=== PATIENT | male | born 1995 | race Caucasian/White ===

== ENCOUNTER → 2016-11-14 | Outpatient (REF) | payer OTHER | LOC: M SMT 17:07 | PROVIDERS: ATTEND Urology | DX: R39.89 Other symptoms and signs involving the genitourinary system (principal) | CPT/HCPCS: 81001; 87086; G0463 ==

== ENCOUNTER → 2016-12-05 | Outpatient (CLI) | payer OTHER ==
[~2016-12-05] MED LIST: ISOVUE-370 76% 100ML VIAL (Q9967) As Ordered ONE
--- NOTE | 2016-12-05 14:59 | REP ---
Clinical: Hematuria. Technique: Axial precontrast, contrast enhanced, and delayed images of the abdomen and pelvis using 100 ml Isovue 370 intravenous contrast material with coronal and sagittal re-formations and MIP urogram. Comparison: 07/27/2015. Findings: Evaluation of the urinary check system demonstrates solitary 1 cm bilateral renal cysts. There is no nephrolithiasis, hydroureteronephrosis, perinephric stranding, renal mass lesion or obstructing ureteral calculi. The collecting system and bladder appear normal on delayed imaging. Liver, spleen, pancreas, gallbladder, and bilateral adrenal glands are normal. The enteric system is without obstruction or acute inflammatory process. Scattered sigmoid diverticula noted without acute diverticulitis. Pelvis demonstrates normal bladder and age appropriate prostate/seminal vesicles. No pelvic fluid or ascites. No adenopathy. No free air. Abdominal aorta and vasculature normal. Surrounding musculoskeletal structures are intact. Lung bases are clear. Impression: 1. Bilateral solitary 1 cm renal cysts. No further urinary tract pathology appreciated. 2. Scattered sigmoid diverticula. 3. No further acute intra-abdominal or pelvic pathology appreciated. Signed by Eder Muse MD 12/05/2016 02:51 P
== END ==
LOC: M RAD 14:00
PROVIDERS: ATTEND Urology
DX: R31.0 Gross hematuria (principal); N28.1 Cyst of kidney, acquired; K57.30 Diverticulosis of large intestine without perforation or abscess without bleeding
CPT/HCPCS: 74178; Q9967

== ENCOUNTER → 2017-01-01 | Outpatient (CLI) | payer OTHER ==
--- NOTE | 2017-01-01 18:11 | REP ---
Clinical: Spondylosis . Technique: AP, lateral, flexion/extension, bilateral oblique, and coned-down views. Findings: Alignment and lordosis is maintained. The vertebral bodies including transverse process and spinous processes are intact and normal. There is no evidence for acute fracture / compression injury or subluxation. No evidence for spondylolysis or spondylolisthesis. No significant degenerative change is noted. Impression: Normal lumbosacral spine radiograph series. Signed by Eder Muse MD 01/01/2017 06:04 P
--- NOTE | 2017-01-01 18:14 | REP ---
Clinical: Spondylosis. Technique: AP, lateral, flexion/extension, swimmer's, bilateral oblique and open mouth views. Findings: Alignment and lordosis is relatively maintained. 1.4 mm of retrolisthesis at the C4-5 level on neutral and extension views is suggested. No acute fracture or subluxation. No significant degenerative changes are appreciated. Oblique views demonstrate patent neural foramen. Open mouth view demonstrates normal C1-C2 articulation and odontoid process. Impression: Chronic, stable 1.4 mm of retrolisthesis at the C4-5 level cannot be excluded. Examination is otherwise normal. Signed by Eder Muse MD 01/01/2017 06:06 P
== END ==
LOC: M RAD 15:32
PROVIDERS: ATTEND Neurological Surgery
DX: M47.892 Other spondylosis, cervical region (principal); M47.896 Other spondylosis, lumbar region

== ENCOUNTER → 2017-11-19 | Outpatient (CLI) | payer OTHER | LOC: M RAD 10:54 | DX: M47.892 Other spondylosis, cervical region (principal); M47.896 Other spondylosis, lumbar region ==

== ENCOUNTER 2018-08-16 13:42 | Emergency (ER) | payer OTHER ==
[2018-08-16] MEDS: KETOROLAC 30 MG/ML VIAL (J1885) IV (14:45)
[2018-08-16] MEDS: diphenhydrAMINE INJ 50MG/ML VIAL (J1200) IV (14:45)
[2018-08-16] MEDS: METOCLOPRAMIDE INJ 10MG/2ML VIAL (J2765) IV (14:45)
== END 2018-08-16 16:38 | disposition home or self-care (01) ==
LOC: M ED 13:42
DX: R51 Headache (principal); Z79.899 Other long term (current) drug therapy; Q07.00 Arnold-Chiari syndrome without spina bifida or hydrocephalus
CPT/HCPCS: J1200

== ENCOUNTER 2018-08-19 11:07 | Emergency (ER) | payer OTHER ==
[2018-08-19] MEDS: METOCLOPRAMIDE INJ 10MG/2ML VIAL (J2765) IV (11:31)
[2018-08-19] MEDS: KETOROLAC 30 MG/ML VIAL (J1885) IV (11:31)
[2018-08-19] MEDS: NS 1,000 ML IV (11:31)
[2018-08-19] MEDS: ACETAMINOPHEN 325 MG TAB PO (12:47)
== END 2018-08-19 12:49 | disposition home or self-care (01) ==
LOC: M ED 11:07
DX: G43.919 Migraine, unspecified, intractable, without status migrainosus (principal); Z79.899 Other long term (current) drug therapy
CPT/HCPCS: J1885

== ENCOUNTER 2018-09-08 11:51 | Emergency (ER) | payer OTHER ==
[2018-09-08] MEDS: METOCLOPRAMIDE INJ 10MG/2ML VIAL (J2765) IV (12:49)
[2018-09-08] MEDS: NS 1,000 ML IV (12:50)
[2018-09-08] MEDS: diphenhydrAMINE INJ 50MG/ML VIAL (J1200) IV (12:50)
[2018-09-08] MEDS: KETOROLAC 30 MG/ML VIAL (J1885) IV (12:50)
[2018-09-08 12:58] LABS: BASO # 0.1 10^3/uL (0.0-0.2); BASO % 0.4 % (0.0-1.0); EOS # 0.1 10^3/uL (0.0-0.50); EOS % 0.5 % (0.0-3.0); HEMATOCRIT 44.8 % (42.0-52.0); HEMOGLOBIN 16.3 g/dl (13.5-17.5); IMMATURE GRANULOCYTE % 0.2 % (0-3.0); MEAN CORPUSCULAR HEMOGLOBIN 30.1 pg (27.0-33.0); MEAN CORPUSCULAR HGB CONC 36.4 g/dl (32.0-36.5); MEAN CORPUSCULAR VOLUME 82.7 fl (80.0-96.0); MONO # 0.9 10^3/uL (0.0-0.8); MONO % 7.8 % (0.0-5.0); NEUTROPHILS % 66.1 % (36.0-66.0); PLATELET COUNT, AUTOMATED 232 10^3/uL (150-450); RED BLOOD COUNT 5.42 10^6/uL (4.30-6.10); RED CELL DISTRIBUTION WIDTH 12.4 % (11.5-14.5); WHITE BLOOD COUNT 12.1 10^3/uL (4.0-10.0)
[2018-09-08 13:14] LABS: ANION GAP 8 MEQ/L (8-16); BLOOD UREA NITROGEN 11 MG/DL (7-18); CALCIUM LEVEL 8.8 MG/DL (8.5-10.1); CARBON DIOXIDE LEVEL 28 MEQ/L (21-32); CHLORIDE LEVEL 102 MEQ/L (98-107); CREATININE FOR GFR 0.98 MG/DL (0.70-1.30); GLOMERULAR FILTRATION RATE > 60.0 (>60); GLUCOSE, FASTING 85 MG/DL (70-100); SODIUM LEVEL 138 MEQ/L (136-145)
[2018-09-08 14:06] LABS: PROTHROMBIN TIME 14.3 SECONDS (12.1-14.4)
[2018-09-08] MEDS: POTASSIUM CHLORIDE 10 MEQ SR TABLET PO (14:17)
== END 2018-09-08 14:39 | disposition home or self-care (01) ==
LOC: M ED 11:51
DX: G43.909 Migraine, unspecified, not intractable, without status migrainosus (principal); R04.0 Epistaxis
CPT/HCPCS: J1200

== ENCOUNTER 2018-09-10 10:30 | Emergency (ER) | payer OTHER ==
[2018-09-10] MEDS ORDERED: METOCLOPRAMIDE 10 MG TAB PO (11:15)
[2018-09-10] MEDS: NS 1,000 ML IV (11:27)
[2018-09-10] MEDS: KETOROLAC 30 MG/ML VIAL (J1885) IV (11:29)
[2018-09-10] MEDS: diphenhydrAMINE INJ 50MG/ML VIAL (J1200) IV (11:33)
[2018-09-10] MEDS: METOCLOPRAMIDE INJ 10MG/2ML VIAL (J2765) IV (11:36)
[2018-09-10 11:52] LABS: ANION GAP 7 MEQ/L (8-16); BLOOD UREA NITROGEN 11 MG/DL (7-18); CALCIUM LEVEL 8.5 MG/DL (8.5-10.1); CARBON DIOXIDE LEVEL 26 MEQ/L (21-32); CHLORIDE LEVEL 109 MEQ/L (98-107); CREATININE FOR GFR 1.01 MG/DL (0.70-1.30); GLOMERULAR FILTRATION RATE > 60.0 (>60); GLUCOSE, FASTING 99 MG/DL (70-100); POTASSIUM SERUM 3.6 MEQ/L (3.5-5.1); SODIUM LEVEL 142 MEQ/L (136-145)
== END 2018-09-10 12:58 | disposition home or self-care (01) ==
LOC: M ED 10:30
DX: G43.909 Migraine, unspecified, not intractable, without status migrainosus (principal); F32.9 Major depressive disorder, single episode, unspecified; Z79.899 Other long term (current) drug therapy
CPT/HCPCS: J1200

== ENCOUNTER 2018-10-10 12:51 | Emergency (ER) | payer OTHER | END 2018-10-10 14:26 | disposition home or self-care (01) | LOC: M ED 12:51 | DX: S00.83XA Contusion of other part of head, initial encounter (principal); V43.52XA Car driver injured in collision with other type car in traffic accident, initial encounter; Y92.9 Unspecified place or not applicable; Y93.9 Activity, unspecified; Y99.9 Unspecified external cause status; R51 Headache; K21.9 Gastro-esophageal reflux disease without esophagitis; F32.9 Major depressive disorder, single episode, unspecified; Z79.899 Other long term (current) drug therapy | CPT/HCPCS: 70450 ==

== ENCOUNTER 2018-11-05 10:50 | Emergency (ER) | payer OTHER ==
[~2018-11-05] VITALS: Ht 182.9 cm; Wt 88.2 kg
[~2018-11-05 10:50] MED LIST changes: +BACL10TA2; +DICL75TA; +DIVA250T67; +DULO1CAP2; +IBUP-1022 PO; +IMIT100T PO; -ISOVUE-370 76% 100ML VIAL (Q9967) As Ordered ONE; +NORT50CA; +PANT40TA3; +PANT40TA3 PO; +REGL10TA6 PO; +TOPI25TA10
[2018-11-05] MEDS ORDERED: GABA-843 PO (10:54)
[2018-11-05] MEDS ORDERED: NS 1,000 ML IV ONE (11:15)
[2018-11-05] MEDS ORDERED: diphenhydrAMINE INJ 50MG/ML VIAL (J1200) IV ONE (11:15)
[2018-11-05] MEDS ORDERED: METOCLOPRAMIDE INJ 10MG/2ML VIAL (J2765) IV ONE (11:15)
[2018-11-05] MEDS ORDERED: KETOROLAC 30 MG/ML VIAL (J1885) IV ONE (11:15)
[2018-11-05] MEDS ORDERED: ACETAMINOPHEN 325 MG TAB PO ONE (12:45)
[2018-11-05] MEDS ORDERED: PRED20TA PO (13:35)
[2018-11-05 13:52] VITALS: BP 115/69
== END 2018-11-05 13:53 | disposition home or self-care (01) ==
LOC: M ED 10:50
DX: G43.909 Migraine, unspecified, not intractable, without status migrainosus (principal)
CPT/HCPCS: 96361; 96374; 96375; 99284; G0480; J1200; J1885; J2765

== ENCOUNTER 2018-11-12 12:04 | Emergency (ER) | payer OTHER ==
[~2018-11-12] VITALS: Ht 182.9 cm; Wt 86.4 kg
[~2018-11-12 12:04] MED LIST changes: +GABA-843 PO; +PRED20TA PO
[2018-11-12] MEDS ORDERED: METOCLOPRAMIDE INJ 10MG/2ML VIAL (J2765) IV ONE (13:15)
[2018-11-12] MEDS ORDERED: KETOROLAC 30 MG/ML VIAL (J1885) IV ONE (13:15)
[2018-11-12] MEDS ORDERED: diphenhydrAMINE INJ 50MG/ML VIAL (J1200) IV ONE (13:15)
[2018-11-12] MEDS ORDERED: NORC1TAB4 PO (15:56)
[2018-11-12] MEDS ORDERED: NORCO, ANEXSIA 5/325MG TABLET (HYDROcodone/ACETAMINOPHEN) PO ONE (16:00)
[2018-11-12] MEDS ORDERED: TOPA50TA8 PO (16:30)
[2018-11-12 16:45] VITALS: BP 122/76
[2018-11-12] MEDS ORDERED: TOPIRAMATE (TopAMAX) 25 MG TAB PO ONE (16:45)
== END 2018-11-12 16:47 | disposition home or self-care (01) ==
LOC: M ED 12:04
DX: G43.909 Migraine, unspecified, not intractable, without status migrainosus (principal)
CPT/HCPCS: 96374; 96375; 99284; J1200; J1885; J2765

== ENCOUNTER 2018-11-19 17:30 | Emergency (ER) | payer OTHER ==
[~2018-11-19] VITALS: Ht 182.9 cm; Wt 81.8 kg
[~2018-11-19 17:30] MED LIST changes: +NORC1TAB4 PO; +TOPA50TA8 PO
[2018-11-19] MEDS ORDERED: METO10TA2 (17:36)
[2018-11-19] MEDS ORDERED: BUTALB-ACETAMIN-CAFF (17:36)
[2018-11-19] MEDS ORDERED: METOCLOPRAMIDE INJ 10MG/2ML VIAL (J2765) IV ONE (18:00)
[2018-11-19] MEDS ORDERED: NS 500 ML IV ONE (18:00)
[2018-11-19] MEDS ORDERED: KETOROLAC 30 MG/ML VIAL (J1885) IV ONE (18:00)
--- NOTE | 2018-11-19 18:11 | REP ---
Clinical: Migraine headaches Comparison: 10/10/2018 . Findings: The ventricles, sulci, and cisterns are normal in position and appearance. Chavez-white differentiation is maintained. No acute intracranial hemorrhage, mass/mass effect, pathology or trauma/injury. No evidence for acute infarction. No extra-axial fluid collection. Calvarium is intact. Paranasal sinuses and mastoid air cells are clear. Impression: Normal noncontrast head CT. No evidence for acute intracranial pathology or trauma/injury. Electronically Signed by Eder Muse MD 11/19/2018 06:02 P
--- NOTE | 2018-11-19 18:17 | REP ---
Clinical: Premature ventricular contractions. Technique: PA and lateral. Findings: Mediastinum and cardiac silhouette are normal. Lung bennett are clear. No focal consolidation, effusion, or pneumothorax skeletal structures are intact. Impression: No acute cardiopulmonary process appreciated. Electronically Signed by Eder Muse MD 11/19/2018 06:08 P
[2018-11-19 18:29] LABS: BASO % 0.5 % (0.0-1.0); EOS # 0.1 10^3/uL (0.0-0.50); EOS % 1.1 % (0.0-3.0); HEMOGLOBIN 15.8 g/dl (13.5-17.5); LYMPH # 1.9 10^3/uL (1.5-6.5); LYMPH % 22.4 % (24.0-44.0); MEAN CORPUSCULAR HEMOGLOBIN 29.3 pg (27.0-33.0); MEAN CORPUSCULAR HGB CONC 35.1 g/dl (32.0-36.5); MEAN CORPUSCULAR VOLUME 83.3 fl (80.0-96.0); MONO # 0.3 10^3/uL (0.0-0.8); MONO % 3.7 % (0.0-5.0); NEUTROPHILS % 72.1 % (36.0-66.0); PLATELET COUNT, AUTOMATED 225 10^3/uL (150-450); WHITE BLOOD COUNT 8.3 10^3/uL (4.0-10.0)
[2018-11-19 19:07] LABS: BLOOD UREA NITROGEN 10 MG/DL (7-18); CALCIUM LEVEL 9.2 MG/DL (8.5-10.1); CARBON DIOXIDE LEVEL 28 MEQ/L (21-32); CHLORIDE LEVEL 107 MEQ/L (98-107); CPK CREATINE PHOSPHOKINASE 100 U/L (39-308); CREATININE FOR GFR 0.86 MG/DL (0.70-1.30); GLOMERULAR FILTRATION RATE > 60.0 (>60); GLUCOSE, FASTING 91 MG/DL (70-100); SODIUM LEVEL 141 MEQ/L (136-145); THYROID STIMULATING HORMONE 0.685 uIU/ML (0.358-3.740); TROPONIN I < 0.02 NG/ML (< 0.10)
[2018-11-19 19:33] LABS: AMPHETAMINES LEVEL URINE NEGATIVE (NEGATIVE); BARBITURATES URINE POSITIVE (NEGATIVE); BENZODIAZEPINES URINE NEGATIVE (NEGATIVE); CANNABINOIDS URINE NEGATIVE (NEGATIVE); COCAINE METABOLITE URINE NEGATIVE (NEGATIVE); METHADONE URINE NEGATIVE (NEGATIVE); OPIATES URINE NEGATIVE (NEGATIVE); PHENCYCLIDINE URINE NEGATIVE (NEGATIVE)
[2018-11-19 19:46] VITALS: BP 113/56
[2018-11-19] MEDS ORDERED: REGL10TA6 PO (19:55)
[2018-11-19] MEDS ORDERED: KETO10TAB PO (19:55)
--- NOTE | 2018-11-20 10:24 | ECGEPIP ---
Stationary ECG Study [facility] - ED Test Date: 2018-11-19 Pat Name: RAN ALVES Department: Room: - Gender: M Document Review Attorney: GAMALIEL : 1995 Requested By: ARAM Houston PA-C Order Number: [id number] Reading MD: Martha Dumas Measurements Intervals [place] Rate: 93 P: 66 FL: 185 QRS: 85 QRSD: 104 T: 39 QT: 341 QTc: 424 Interpretive Statements SINUS RHYTHM WITH OCCASIONAL VENTRICULAR PREMATURE COMPLEXES NO PRIOR FOR COMPARISON Electronically Signed On 11-20-2018 10:24:06 EST by Martha Dumas
== END 2018-11-19 20:13 | disposition home or self-care (01) ==
LOC: M ED 17:30
DX: G43.909 Migraine, unspecified, not intractable, without status migrainosus (principal); I49.3 Ventricular premature depolarization; K21.9 Gastro-esophageal reflux disease without esophagitis; F32.9 Major depressive disorder, single episode, unspecified; Z79.899 Other long term (current) drug therapy
CPT/HCPCS: 70450; 71046; 80048; 80307; 82550; 82553; 84443; 84484; 85025; 93005; 93041; 96374; 96375; 99284; J1885; J2765

== ENCOUNTER 2019-01-21 07:30 | Emergency (ER) | payer OTHER ==
[~2019-01-21] VITALS: Ht 182.9 cm; Wt 81.8 kg
[~2019-01-21 07:30] MED LIST changes: +BUTALB-ACETAMIN-CAFF; +KETO10TAB PO; +METO10TA2; -NORC1TAB4 PO; +NORC1TAB7 PO
[2019-01-21 08:16] LABS: HEMATOCRIT 45.3 % (42.0-52.0); HEMOGLOBIN 15.6 g/dl (13.5-17.5); MEAN CORPUSCULAR HEMOGLOBIN 28.4 pg (27.0-33.0); MEAN CORPUSCULAR HGB CONC 34.4 g/dl (32.0-36.5); MEAN CORPUSCULAR VOLUME 82.5 fl (80.0-96.0); PLATELET COUNT, AUTOMATED 291 10^3/uL (150-450); RED BLOOD COUNT 5.49 10^6/uL (4.30-6.10); WHITE BLOOD COUNT 7.8 10^3/uL (4.0-10.0)
[2019-01-21 09:16] LABS: ACETAMINOPHEN LEVEL < 2.0 UG/ML (10.0-30.0); ALT/SGPT 68 U/L (12-78); BILIRUBIN,DIRECT 0.2 MG/DL (0.0-0.2); BILIRUBIN,TOTAL 0.6 MG/DL (0.2-1.0); BLOOD UREA NITROGEN 10 MG/DL (7-18); CALCIUM LEVEL 8.6 MG/DL (8.5-10.1); CARBON DIOXIDE LEVEL 30 MEQ/L (21-32); CHLORIDE LEVEL 107 MEQ/L (98-107); CREATININE FOR GFR 1.01 MG/DL (0.70-1.30); ETHYL ALCOHOL (ETHANOL) < 0.003 % (0.000-0.010); GLOMERULAR FILTRATION RATE > 60.0 (>60); GLUCOSE, FASTING 87 MG/DL (70-100); POTASSIUM SERUM 3.7 MEQ/L (3.5-5.1); SALICYLATE LEVEL < 1.7 MG/DL (5.0-30.0); SODIUM LEVEL 143 MEQ/L (136-145); TOTAL PROTEIN 7.1 GM/DL (6.4-8.2)
[2019-01-21 09:44] VITALS: BP 130/79
== END 2019-01-21 09:57 | disposition home or self-care (01) ==
LOC: M ED 07:30
DX: Z04.6 Encounter for general psychiatric examination, requested by authority (principal); F43.0 Acute stress reaction
CPT/HCPCS: 36415; 80048; 80076; 84443; 85027; 99284; G0480